=== PATIENT | female | born 1965 | race Caucasian/White ===

== ENCOUNTER → 2017-04-25 | Outpatient (CLI) | payer OTHER ==
--- NOTE | 2017-04-25 16:12 | REPMRS ---
Patient History The patient states she had a clinical breast exam in No known family history of cancer. Digital Woman Screen Mammo: April 25, 2017 - Exam #: [id number] Bilateral CC and MLO view(s) were taken. Technologist: Claire Metzger, Technologist Prior study comparison: February 17, 2016, digital woman screen mammo performed at [facility] to [facility]. December 17, 2014, digital woman screen mammo performed at [facility] to [facility]. FINDINGS: There are scattered fibroglandular densities. There has been no change in the appearance of the mammogram from the prior studies. There is a mild amount of residual fibroglandular tissue which is fairly symmetric. There is no interval development of dominant mass, architectural distortion, or clustered microcalcification suggestive of malignancy. ASSESSMENT: BI-RADS/ACR category 1 mammogram. Negative. Recommendation Routine screening mammogram in 1 year (for women over age 40). This mammogram was interpreted with the aid of an FDA-approved computer-aided dectection system. Electronically Signed By: Raul Vieira MD 04/25/17 [id number]
== END ==
LOC: M WHC 15:10
PROVIDERS: ATTEND Nurse Practitioner Family
DX: Z12.31 Encounter for screening mammogram for malignant neoplasm of breast (principal)

== ENCOUNTER → 2018-07-25 | Outpatient (CLI) | payer OTHER ==
--- NOTE | 2018-07-25 17:19 | REPMRS ---
Patient History The patient states she had a clinical breast exam in 07/2018. No known family history of cancer. Digital Woman Screen Mammo: July 25, 2018 - Exam #: [id number] Bilateral CC and MLO view(s) were taken. Technologist: Migdalia Goldsmith Technologist Prior study comparison: April 25, 2017, digital woman screen mammo performed at [facility]. February 17, 2016, digital woman screen mammo performed at [facility]. December 17, 2014, digital woman screen mammo performed at [facility]. FINDINGS: There are scattered fibroglandular densities. There is a moderate amount of residual fibroglandular tissue which is fairly symmetric. There is no interval development of dominant mass, architectural distortion, or clustered microcalcification typical of malignancy. There has been no change in the appearance of the mammogram from the prior studies. 3-D tomosynthesis shows no additional findings. Assessment: BI-RADS/ACR category 1 mammogram. Negative Mammogram. Recommendation Routine screening mammogram of both breasts in 1 year (for women over age 40). This patient's Lifetime Breast Cancer RIsk is estimated at 7.8 %. This mammogram was interpreted with the aid of an FDA-approved computer-aided dectection system. Electronically Signed By: Abdulkadir Walton MD 07/25/18 [id number]
== END ==
LOC: M WHC 15:17
PROVIDERS: ATTEND Nurse Practitioner Family
DX: Z12.31 Encounter for screening mammogram for malignant neoplasm of breast (principal)

== ENCOUNTER → 2018-07-25 | Outpatient (REF) | payer OTHER ==
[2018-07-29 14:47] LABS: HPV HYBRID CAPTURE II Negative (Negative)
== END ==
LOC: M SFHCWAGY 15:56
PROVIDERS: ATTEND Nurse Practitioner Family
DX: Z12.4 Encounter for screening for malignant neoplasm of cervix (principal)
CPT/HCPCS: 87624; G0123

== ENCOUNTER → 2018-11-23 | Outpatient (CLI) | payer OTHER ==
--- NOTE | 2018-11-23 11:58 | REP ---
Clinical: Epigastric and abdominal pain. Technique: Upright view of the chest with supine and upright views of the abdomen and pelvis. Findings: Frontal upright view of the chest demonstrates no acute cardiopulmonary process or free air below the diaphragm to suspect pneumoperitoneum. Supine and upright views of the abdomen and pelvis demonstrate nonspecific bowel gas pattern without obstruction or perforation. No organomegaly. No abnormal calcifications. Skeletal structures normal for age. Impression: Nonspecific bowel gas pattern. Electronically Signed by Jude Lama MD 11/23/2018 11:50 A
[2018-11-23 12:46] LABS: BASO % 0.2 % (0.0-1.0); EOS % 0.4 % (0.0-3.0); HEMATOCRIT 43.4 % (36.0-47.0); HEMOGLOBIN 14.3 g/dl (12.0-15.5); LYMPH % 18.3 % (24.0-44.0); MEAN CORPUSCULAR HEMOGLOBIN 29.3 pg (27.0-33.0); MEAN CORPUSCULAR HGB CONC 32.9 g/dl (32.0-36.5); MEAN CORPUSCULAR VOLUME 88.9 fl (80.0-96.0); MONO # 0.5 10^3/uL (0.0-0.8); MONO % 8.9 % (0.0-5.0); NEUTROPHILS # 4.1 10^3/uL (1.8-7.7); NEUTROPHILS % 71.8 % (36.0-66.0); PLATELET COUNT, AUTOMATED 291 10^3/uL (150-450); RED BLOOD COUNT 4.88 10^6/uL (4.00-5.40); WHITE BLOOD COUNT 5.6 10^3/uL (4.0-10.0)
[2018-11-23 12:54] LABS: ALBUMIN 3.7 GM/DL (3.2-5.2); ALT/SGPT 56 U/L (12-78); BILIRUBIN,TOTAL 0.3 MG/DL (0.2-1.0); BLOOD UREA NITROGEN 12 MG/DL (7-18); CALCIUM LEVEL 9.3 MG/DL (8.5-10.1); CARBON DIOXIDE LEVEL 27 MEQ/L (21-32); CHLORIDE LEVEL 105 MEQ/L (98-107); CREATININE FOR GFR 0.61 MG/DL (0.55-1.30); GLOMERULAR FILTRATION RATE > 60.0 (>51); GLUCOSE, FASTING 88 MG/DL (70-100); LIPASE 98 U/L (73-393); POTASSIUM SERUM 4.3 MEQ/L (3.5-5.1); SODIUM LEVEL 138 MEQ/L (136-145); TOTAL PROTEIN 7.2 GM/DL (6.4-8.2)
== END ==
LOC: M ADAMS 10:15
PROVIDERS: ATTEND Physician Assistant
DX: R11.10 Vomiting, unspecified (principal); R14.3 Flatulence

== ENCOUNTER → 2019-08-01 | Outpatient (CLI) | payer OTHER ==
--- NOTE | 2019-08-01 16:43 | REP ---
BILATERAL MAMMOGRAM WITH 3D TOMOSYNTHESIS: No family history of breast cancer. [facility] lifetime risk of breast cancer is 7.8%. COMPARISON: 07/25/2018. Bilateral mammogram was performed in the MLO and CC projections with 3D tomosynthesis. There is moderately dense breast parenchyma bilaterally. There is a new well circumscribed nodule in the upper inner left breast measuring about 6 mm. There is no other evidence of new mass or clustered microcalcifications. IMPRESSION: ACR 0 incomplete. There appears to be a new well circumscribed nodule posteriorly in the upper inner left breast 6 mm in diameter. Recommend spot compression views and ultrasound to further evaluate. BIRADS 0: BI-RADS/ACR category 0 mammogram, Incomplete: Need additional imaging evaluation and/or prior mammograms for comparison. This mammogram was interpreted with the aid of an FDA-approved computer-aided detection system. The patient states she had a clinical breast exam in 07/2019. The patient letter being requested is M0.
== END ==
LOC: M WHC 14:57
PROVIDERS: ATTEND Nurse Practitioner Family
DX: Z12.31 Encounter for screening mammogram for malignant neoplasm of breast (principal); N63.22 Unspecified lump in the left breast, upper inner quadrant

== ENCOUNTER → 2019-08-09 | Outpatient (CLI) | payer OTHER ==
--- NOTE | 2019-08-09 12:31 | REP ---
DIGITAL DIAGNOSTIC UNILATERAL LEFT BREAST MAMMOGRAPHY WITH CAD AND FOCUSED LEFT BREAST SONOGRAPHY: HISTORY: Screening mammography August 01, 2019 was BIRADS category 0 because of an 7 mm nodular neodensity projecting in the left breast medially. Comparison is also made with July 25, 2018 prior mammography. MAMMOGRAPHIC FINDINGS: Magnified focal spot compression CC, MLO, and true mediolateral views confirm the presence of a well-circumscribed nodular density in the left breast superior and medial quadrant. No other suspicious mammographic finding. SONOGRAPHIC FINDINGS: The left breast is scanned through the superior medial quadrant from 9-o'clock 12-o'clock position. Heterogeneous fibroglandular background echotexture is seen. At approximately 10-o'clock position, there is a very superficial subdermal nodule with its long axis parallel to the skin. The lesion indents the undersurface of the dermis. It measures 6 x 5 x 4 mm and is 6.9 cm from the nipple. This is felt to account for the mammographic opacity. It is hypoechoic with enhanced through transmission. It does not meet criteria of a simple cyst. IMPRESSION: Hypoechoic superficial lesion 10-o'clock position left breast. BIRADS category 4 suspicious left breast imaging. Ultrasound-guided fine needle aspiration and/or ultrasound-guided cyst aspiration recommended. Postprocedure mammography should be performed. This mammogram was interpreted with the aid of an FDA-approved computer-aided detection system. The patient letter being requested is M4. Electronically Signed by Caleb Walton MD 08/09/2019 02:37 P
== END ==
LOC: M RAD 10:11
PROVIDERS: ATTEND Nurse Practitioner Family
DX: R92.8 Other abnormal and inconclusive findings on diagnostic imaging of breast (principal)

== ENCOUNTER → 2019-09-06 | Outpatient (CLI) | payer OTHER ==
--- NOTE | 2019-09-06 11:35 | REP ---
DIGITAL DIAGNOSTIC UNILATERAL LEFT BREAST MAMMOGRAPHY: Two views. The patient is status post excisional biopsy of a superficial subdermal nodule in the left breast. No clip marker. Comparison mammography August 01, 2019. Comparison sonography August 09, 2019. Comparison diagnostic mammography August 09, 2019. FINDINGS: The previously noted superomedial nodular density seen on mammography is no longer apparent. Today's mammography demonstrates postoperative skin thickening and edema in the lateral aspect of the left breast. No internal hematoma is appreciated. No other new finding.
== END ==
LOC: M WHC 08:12
PROVIDERS: ATTEND Surgery
DX: L76.82 Other postprocedural complications of skin and subcutaneous tissue (principal); R60.9 Edema, unspecified

== ENCOUNTER → 2019-09-06 | Outpatient (REF) | payer OTHER | LOC: M SFHCWAGY 13:25 | PROVIDERS: ATTEND Surgery | DX: N60.02 Solitary cyst of left breast (principal); L53.9 Erythematous condition, unspecified ==

== ENCOUNTER → 2019-09-10 | Outpatient (CLI) | payer OTHER ==
--- NOTE | 2019-09-11 08:01 | REP ---
Clinical: Adenopathy. Technique: Real time hernandez scale and color evaluation using linear high frequency transducer. Findings: Ultrasound examination of the left axillary region demonstrates multiple nonspecific appearing lymph nodes measuring up to 11 x 12 x 7 mm and 15 x 15 x 7 mm. Impression: Few nonspecific left axillary lymph nodes.
--- NOTE | 2019-09-11 09:41 | REP ---
RIGHT BREAST ULTRASOUND: Focus study. HISTORY: Right breast mass on physical exam. FINDINGS: The right breast scanned from 10-o'clock position to 12-o'clock position. In the axillary tail, there is a normal-appearing lymph node measuring 1.8 x 1.4 x 0.8 cm with a thin cortical margin and a fatty hilus. No mass or cyst is seen. IMPRESSION: BIRADS category 2 benign findings. Clinical followup is advised.
== END ==
LOC: M WHC 15:20
PROVIDERS: ATTEND Surgery
DX: N63.10 Unspecified lump in the right breast, unspecified quadrant (principal); R59.0 Localized enlarged lymph nodes

== ENCOUNTER → 2020-09-17 | Outpatient (CLI) | payer OTHER ==
--- NOTE | 2020-09-17 16:43 | REPMRS ---
Patient History The patient states she had a clinical breast exam in 09/2020 Patient is postmenopausal. Family history of endometrial cancer at age 50 or over in mother. Benign excisional biopsy of the left breast, September 06, 2019. No Hormone Replacement Therapy Digital Woman Screen Mammo: September 17, 2020 - Exam #: [id number] Bilateral CC and MLO view(s) were taken. Technologist: Marci Mart, Technologist Prior study comparison: September 06, 2019, left breast diagnostic unilateral mammo performed at [facility]. August 01, 2019, bilateral digital woman screen mammo performed at [facility]. July 25, 2018, bilateral digital woman screen mammo performed at [facility]. April 25, 2017, digital woman screen mammo performed at [facility]. FINDINGS: There are scattered fibroglandular densities. The Volpara volumetric breast density category is: B. There is a moderate amount of residual fibroglandular tissue which is fairly symmetric. There is no interval development of dominant mass, architectural distortion, or grouped microcalcification typical of malignancy. There has been no change in the appearance of the mammogram from the prior studies. 3-D tomosynthesis shows no additional findings. Assessment: BI-RADS/ACR category 1 mammogram. Negative Mammogram. Recommendation Routine screening mammogram of both breasts in 1 year (for women over age 40). This patient's [facility] Lifetime Breast Cancer RIsk is estimated at 7.6 %. This mammogram was interpreted with the aid of an FDA-approved computer-aided dectection system. Electronically Signed By: Abdulkadir Walton MD 09/17/20 [id number]
== END ==
LOC: M WHC 15:30
PROVIDERS: ATTEND Nurse Practitioner Family
DX: Z12.31 Encounter for screening mammogram for malignant neoplasm of breast (principal)

== ENCOUNTER → 2021-10-28 | Outpatient (CLI) | payer OTHER | LOC: M WHC 11:01 | PROVIDERS: ATTEND Advanced Practice Midwife | DX: R92.2 Inconclusive mammogram (principal) ==

== ENCOUNTER → 2021-10-28 | Outpatient (REF) | payer OTHER | LOC: M PLALAB 11:47 | PROVIDERS: ATTEND Advanced Practice Midwife | DX: Z01.419 Encounter for gynecological examination (general) (routine) without abnormal findings (principal); Z12.4 Encounter for screening for malignant neoplasm of cervix ==

== ENCOUNTER → 2021-11-05 | Outpatient (CLI) | payer OTHER | LOC: M WHC 15:26 | PROVIDERS: ATTEND Advanced Practice Midwife | DX: Z12.31 Encounter for screening mammogram for malignant neoplasm of breast (principal) ==

== ENCOUNTER → 2023-04-05 | Outpatient (CLI) | payer OTHER | LOC: M WHC 14:26 | PROVIDERS: ATTEND Nurse Practitioner Family | DX: Z12.31 Encounter for screening mammogram for malignant neoplasm of breast (principal) | CPT/HCPCS: 77065; G0279 ==

== ENCOUNTER → 2024-03-28 | Outpatient (CLI) | payer OTHER | LOC: M WHC 15:43 | PROVIDERS: ATTEND Nurse Practitioner Family | DX: Z12.31 Encounter for screening mammogram for malignant neoplasm of breast (principal) ==

== ENCOUNTER → 2025-04-30 | Outpatient (CLI) | payer OTHER | LOC: M WHC 12:59 | PROVIDERS: ATTEND Physician Assistant | DX: Z12.31 Encounter for screening mammogram for malignant neoplasm of breast (principal); R92.323 Mammographic fibroglandular density, bilateral breasts ==